=== PATIENT | female | born 1960 | race Two or more races ===

== ENCOUNTER 2022-01-04 11:15 | Inpatient (IN) | payer OTHER ==
[~2022-01-04] VITALS: Ht 160 cm; Wt 71.7 kg
[2022-01-04] MEDS ORDERED: CLONAZEPAM1 MG PO (13:15)
[2022-01-04] MEDS ORDERED: WELLBUTRIN XL300 MG PO (13:15)
[2022-01-04] MEDS ORDERED: TEMAZEPAM30 MG PO (13:16)
[2022-01-04] MEDS ORDERED: CANABIS PO (13:16)
[2022-01-07] MEDS ORDERED: ULTRACET PO (08:05)
[2022-01-07] MEDS ORDERED: RECTICARE30 GM TOP (08:05)
== END 2022-01-07 10:46 | disposition home or self-care (01) | DRG 349 ==
LOC: O/R 01-06 07:41 → SURG 01-06 11:15 → EDBD 01-06 11:15 → SURG 01-06 14:10
PROVIDERS: ADMIT Surgery; ATTEND Surgery
PROC: 0DBP7ZZ Excision of Rectum, Via Natural or Artificial Opening (ICD-10-PCS; principal; 2022-01-06 10:00)
DX: D12.8 Benign neoplasm of rectum (principal); Z20.822 Contact with and (suspected) exposure to COVID-19

== ENCOUNTER 2023-04-02 09:15 | Inpatient (IN) | payer OTHER ==
[~2023-04-02] VITALS: Ht 160 cm; Wt 61.2 kg
[~2023-04-02 09:15] MED LIST: CANABIS PO; CLONAZEPAM1 MG PO; RECTICARE30 GM TOP; TEMAZEPAM30 MG PO; ULTRACET PO; WELLBUTRIN XL300 MG PO
[2023-04-07 08:06] LABS: CALCIUM 8.4 mg/dL (8.5-10.1); CREATININE SERUM 0.69 mg/dL (0.55-1.02); GFR 86.21; MAGNESIUM 1.9 mg/dL (1.8-2.4); PHOSPHOROUS 3.6 mg/dL (2.5-4.9); POTASSIUM 4.24 mEq/L (3.5-5.1)
[2023-04-07 10:19] LABS: HEMATOCRIT 36.7 % (36.0-45.00); HEMOGLOBIN 12.3 g/dL (12.0-15.00); MEAN CELL VOLUME 84.7 fL (80.00-100.00); MEAN CORPUSCULAR HEMOGLOBIN 28.4 pg (27.00-32.0); MEAN CORPUSCULAR HGB CONC 33.5 g/dl (32.0-36.0); PLATELET COUNT 239 K/uL (150-450); RED BLOOD COUNT 4.33 M/uL (4.00-6.00); RED CELL DISTRIBUTION WIDTH 13.7 % (11.5-14.5)
[2023-04-07] MEDS ORDERED: PERCOCET 5-3251 EACH PO (12:04)
== END 2023-04-07 13:46 | disposition home or self-care (01) | DRG 349 ==
LOC: O/R 04-06 06:09 → SURG 04-06 09:30 → SURH 04-06 13:43 → SURG 04-07 08:08
PROVIDERS: ADMIT Surgery; ATTEND Surgery
PROC: 0DBP7ZZ Excision of Rectum, Via Natural or Artificial Opening (ICD-10-PCS; principal; 2023-04-06 09:30)
DX: D12.8 Benign neoplasm of rectum (principal); Z20.822 Contact with and (suspected) exposure to COVID-19
CPT/HCPCS: 0184T; 45123

== ENCOUNTER 2024-07-04 05:30 | Day surgery (SDC) | payer OTHER ==
[2024-06-30 09:33] VITALS: BP 116/77
[~2024-07-04] VITALS: Ht 91.4 cm; Wt 5.0 kg
[~2024-07-04 05:30] MED LIST changes: +CANABIS; +PAXIL20 MG; +PERCOCET 5-3251 EACH PO; +REMERON
[2024-07-04] MEDS ORDERED: DIBUCAINE 30 GM TUBE ONE (07:02)
[2024-07-04] MEDS ORDERED: HEMOSTATIC MATRIX 1 KIT KIT TOP ONE (07:02)
[2024-07-04] MEDS ORDERED: LIDOCAINE HCL 1%/EPINEPHRINE 20ML VIAL IJ ONE (07:03)
[2024-07-04] MEDS ORDERED: CEFTRIAXONE SODIUM 2,000 MG VIAL ONE (07:03)
[2024-07-04] MEDS ORDERED: CHLORHEXIDINE GLUCONATE 120 ML BOTTLE TOP ONE (07:03)
[2024-07-04] MEDS ORDERED: BUPIVACAINE HCL/MPF 0.5% 30ML VIAL ONE (07:03)
[2024-07-04] MEDS ORDERED: POVIDONE-IODINE 118 ML BOTT TOP ONE (07:03)
[2024-07-04] MEDS ORDERED: METRONIDAZOLE/SODIUM CHLORIDE 500 MG/100 ML PIGGYBACK IV ONE (07:04)
[2024-07-04] MEDS ORDERED: A/F PAIN RELIE500 MG PO (09:47)
[2024-07-04] MEDS ORDERED: COLACE100 MG PO (09:47)
[2024-07-04] MEDS ORDERED: NEURONTIN300 MG PO (09:47)
== END 2024-07-04 13:30 | disposition home or self-care (01) ==
LOC: SURH 05:30 → O/R 05:30 → CIR.AMB 05:30 → SURH 08:30 → EDSTATUS 09:00 → SURH 09:00 → CIR.AMB 13:30 → O/R 13:30
PROVIDERS: ATTEND Surgery
DX: D12.8 Benign neoplasm of rectum (principal); K62.89 Other specified diseases of anus and rectum